=== PATIENT | male | born 1995 | race Caucasian/White ===

== ENCOUNTER 2017-08-14 17:49 | Emergency (ER) | payer OTHER ==
[~2017-08-14] VITALS: Ht 193 cm; Wt 56.1 kg
[2017-08-14 18:20] LABS: APPEARANCE CLEAR ((CLEAR)); BILIRUBIN NEGATIVE; BLOOD NEGATIVE; COLOR YELLOW ((YELLOW)); GLUCOSE (STRIP) NEGATIVE; KETONES NEGATIVE; LEUKOCYTES NEGATIVE; NITRITE NEGATIVE; PROTEIN (STRIP) 30; SPECIFIC GRAVITY 1.024 (1.000-1.030); UCUL ADDED? NO; UROBILINOGEN 0.2 MG/DL (0.2-1.0)
[2017-08-14 18:31] LABS: CHLORIDE 103 mEq/L (99-109); POTASSIUM 4.4 mEq/L (3.7-5.4); SODIUM 138 mEq/L (136-147)
[2017-08-14 18:33] LABS: GLUCOSE 93 mg/dL (70-99)
[2017-08-14 18:34] LABS: TOTAL PROTEIN 7.8 g/dL (6.4-8.3)
[2017-08-14 18:35] LABS: TOTAL BILIRUBIN 1.3 mg/dL (0.0-1.0)
[2017-08-14 18:37] LABS: ALKALINE PHOSPHATASE 96 IU/L (3-129); CREATININE 1.1 mg/dL (0.6-1.3); GFR ESTIMATE (CALCULATED) > 59 mL/min/ (58.99-99999)
[2017-08-14 18:38] LABS: UREA NITROGEN (BUN) 11 mg/dL (9-23)
[2017-08-14 18:39] LABS: AST (GOT) 16 IU/L (2-34)
[2017-08-14 18:40] LABS: ALT (GPT) 19 IU/L (3-49)
[2017-08-14 19:44] LABS: HEMATOCRIT 50.9 % (38.0-50.0); HEMOGLOBIN 18.1 G/DL (12.5-16.6); MCH 31.2 PG (29.0-34.0); MCHC 35.6 G/DL (30.0-36.0); MCV 87.6 FL (86-99); PLATELET COUNT 175 K/uL (156-360); RBC DIS.WIDTH-CV 11.9 % (11.8-14.6); RED BLOOD COUNT 5.81 M/uL (4.00-5.50); WHITE BLOOD COUNT 6.4 K/uL (4.1-10.2)
[2017-08-14 20:47] VITALS: BP 125/89
== END 2017-08-14 20:47 | disposition home or self-care (01) ==
LOC: EME 17:49 → RME 17:49
DX: R10.9 Unspecified abdominal pain (principal); F17.200 Nicotine dependence, unspecified, uncomplicated; Z88.0 Allergy status to penicillin
CPT/HCPCS: 74177; 80053; 81003; 85027; 99281; 99285; J1885